=== PATIENT | female | born 1955 | race Two or more races ===

== ENCOUNTER 2021-09-07 04:35 | Day surgery (SDC) | payer BC ==
[2021-09-06 16:24] VITALS: BMI 30.7
[2021-09-07] MEDS ORDERED: LIDOCAINE HCL/PF 2% SDV 5ML VIAL ONE (13:09)
[2021-09-07] MEDS ORDERED: MIDAZOLAM HCL 2 MG/2 ML SINGLE DOSE VIAL ONE (13:09)
[2021-09-07] MEDS ORDERED: PROPOFOL 20 ML ONE (13:09)
[2021-09-07] MEDS ORDERED: ACETAMINOPHEN 325 MG TABLET (FP) PO PRN (13:49)
[2021-09-07] MEDS ORDERED: IBUPROFEN 400 MG TABLET (FP) PO PRN (13:49)
[2021-09-07] MEDS ORDERED: FENTANYL CITRATE/PF 50 MCG/ML VIAL ONE (14:01)
[2021-09-07] MEDS ORDERED: oxyCODONE HCL 5 MG TABLET PO PRN (14:35)
[2021-09-07] MEDS ORDERED: LACTATED RINGERS SOLUTION 1,000 ML IV SCH (14:45)
[2021-09-07 16:24] VITALS: BP 142/78; PULSE 64; TEMP 97.7
== END 2021-09-07 16:20 | disposition home or self-care (01) ==
LOC: JASU-SURG 04:35
PROVIDERS: ATTEND Obstetrics & Gynecology
PROC: 0U5B8ZZ Destruction of Endometrium, Via Natural or Artificial Opening Endoscopic (ICD-10-PCS; principal; 2021-09-07 11:00)
PROC: 0UDB7ZZ Extraction of Endometrium, Via Natural or Artificial Opening (ICD-10-PCS; 2021-09-07 11:00)
DX: N95.0 Postmenopausal bleeding (principal)
CPT/HCPCS: 88305-TC; 94760